=== PATIENT | female | born 1985 | race Caucasian/White ===

== ENCOUNTER 2018-06-22 16:38 | Emergency (ER) | payer OTHER ==
[~2018-06-22] VITALS: Ht 165.1 cm; Wt 59.6 kg
--- NOTE | 2018-06-22 16:38 | NUR ---
Patient AYANA GARRIDO for pre-booking medical screening exam, transferred to chair E. RN evaluating patient.
[2018-06-22 16:46] VITALS: BP 109/66
--- NOTE | 2018-06-22 16:52 | NUR ---
PATIENT IS A PRE BOOK. PT C/OLOWER ABD PAIN W/ WHITISH GREENISH AND FOUL SMELLING DISCAHRGE; PT IS 7 MONTHS ;REDNESS AND SWEELING NOTED TO BILAT WRIST; PT ADMITTED TAKING DRUGS USING NEEDLES;DENIES N/V/D; SKIN IS PINK/WARM/DRY; AAOX4 WITH EVEN AND STEADY GAIT; SAFETY MEASURSE INSTITUTED; ER MD MADE WILL BE NOTIFIED.
--- NOTE | 2018-06-22 17:12 | NUR ---
PT TAKEN BY ISHAN TO L AND D WITH NURSE AND EMT.
[2018-06-22] MEDS ORDERED: PREN-380 PO (17:55)
[2018-06-22 17:58] VITALS: BP 131/86
[2018-06-22 19:01] LABS: APPEARANCE,URINE SLIGHTLY HAZY (CLEAR); COLOR,URINE YELLOW (YELLOW)
[2018-06-22 19:03] LABS: UGLUCOSE NEGATIVE (NEGATIVE)
[2018-06-22 19:04] LABS: BILIRUBIN,URINE NEGATIVE (NEGATIVE); BLOOD, URINE TRACE (NEGATIVE); LEUKOCYTE ESTERASE ,URINE 2+ (NEGATIVE); NITRITE, URINE NEGATIVE (NEGATIVE)
[2018-06-22 19:11] LABS: RBC,URINE 3-10 (FEW) /HPF (0-5); WBC,URINE 20-60 /HPF (0-5)
--- NOTE | 2018-06-22 19:52 | NUR ---
AYANA WHEELCHAIR BY L&D NURSE ACCOMPANIED BY [place] [employer] TO ER BED 10
[2018-06-22 20:40] VITALS: BP 111/61
--- NOTE | 2018-06-22 20:41 | NUR ---
Patient discharged with v/s stable. Written and verbal after care instructions given and explained. Patient alert, oriented and verbalized understanding of instructions. Police with in custody. All questions addressed prior to discharge. ID band removed. Patient advised to follow up with PMD. Rx of MACROBID 100MG BID given. Patient educated on indication of medication including possible reaction and side effects. Opportunity to ask questions provided and answered.
== END 2018-06-22 20:40 ==
LOC: MED 16:38 → UNDOADMOB 17:15 → MLD 17:15 → EDSTATUS 17:21 → MED 20:40 → EDSTATUS 21:15
DX: O23.43 Unspecified infection of urinary tract in pregnancy, third trimester (principal); J45.909 Unspecified asthma, uncomplicated; Z59.0 Homelessness; Z3A.30 30 weeks gestation of pregnancy
CPT/HCPCS: 81001; 87086; 87186; 99284